=== PATIENT | male | born 1985 | race Caucasian/White ===

== ENCOUNTER 2016-10-16 18:08 | Emergency (ER) | payer SELFPAY ==
[~2016-10-16] VITALS: Ht 175.3 cm; Wt 63.5 kg
[2016-10-16 20:35] VITALS: BP 136/90
== END 2016-10-16 20:35 | disposition home or self-care (01) ==
LOC: ED 18:08
DX: S60.351A Superficial foreign body of right thumb, initial encounter (principal); X58.XXXA Exposure to other specified factors, initial encounter; Y93.89 Activity, other specified; Y99.8 Other external cause status; Y92.89 Other specified places as the place of occurrence of the external cause

== ENCOUNTER 2016-10-29 06:40 | Emergency (ER) | payer MEDICAID ==
[2016-10-29 07:36] LABS: BASOPHIL % 0.4 % (0-2); PLATELET COUNT 208 x10^3mcL (130-400); RED CELL DISTRIBUTION WIDTH 13.9 % (11.5-14.5)
[2016-10-29 07:53] LABS: CALCIUM 8.1 mg/dL (8.5-10.1); CARBON DIOXIDE 24.3 mmol/L (21-32); CHLORIDE SERUM 103 mmol/L (98-107); CREATININE SERUM 0.8 mg/dL (0.7-1.3); GFR1 > 60 mL/min; GLUCOSE SERUM 93 mg/dL (74-106); POTASSIUM SERUM 3.6 mmol/L (3.5-5.1); SODIUM SERUM 139 mmol/L (136-145)
[2016-10-29 07:58] LABS: ALBUMIN 3.9 g/dL (3.4-5.0); ALKALINE PHOSPHATASE 45 U/L (46-116); ALT/SGPT 31 U/L (16-63); AMYLASE 76 U/L (25-115); AST/SGOT 26 U/L (15-37); LIPASE 196 IU/L (73-393); TOTAL PROTEIN, SERUM 7.4 g/dL (6.4-8.2)
[2016-10-29 10:40] VITALS: BP 136/86
== END 2016-10-29 10:40 | disposition home or self-care (01) ==
LOC: ED 06:40
PROVIDERS: Specialist
DX: R10.13 Epigastric pain (principal); R10.11 Right upper quadrant pain; F17.210 Nicotine dependence, cigarettes, uncomplicated
CPT/HCPCS: 83880; J1885; J2405; J3010; J7030; Q0092

== ENCOUNTER 2016-11-30 20:18 | Emergency (ER) | payer MEDICAID | END 2016-11-30 23:21 | disposition left against medical advice (07) | LOC: ED 20:18 | DX: Z53.21 Procedure and treatment not carried out due to patient leaving prior to being seen by health care provider (principal) ==

== ENCOUNTER 2017-09-02 18:15 | Emergency (ER) | payer OTHER ==
[~2017-09-02] VITALS: Ht 180.3 cm; Wt 61.2 kg
[2017-09-02 18:32] VITALS: Ht 180.3 cm; Wt 61.2 kg
[2017-09-02 22:10] VITALS: BP 129/94
== END 2017-09-02 22:10 | disposition home or self-care (01) ==
LOC: ED 18:15
DX: G89.29 Other chronic pain (principal); R51 Headache

== ENCOUNTER 2017-09-18 14:36 | Emergency (ER) | payer OTHER ==
[~2017-09-18] VITALS: Ht 180.3 cm; Wt 62.8 kg
[2017-09-18 14:52] VITALS: Ht 180.3 cm; Wt 62.8 kg
[2017-09-18 15:59] VITALS: BP 109/68
== END 2017-09-18 15:59 | disposition home or self-care (01) ==
LOC: ED 14:36
DX: G89.29 Other chronic pain (principal); F11.20 Opioid dependence, uncomplicated; R51 Headache
CPT/HCPCS: J1885

== ENCOUNTER 2017-10-03 14:08 | Emergency (ER) | payer OTHER ==
[~2017-10-03] VITALS: Ht 180.3 cm; Wt 62.6 kg
[2017-10-03 14:15] VITALS: Ht 180.3 cm; Wt 62.6 kg
[2017-10-03 15:58] VITALS: BP 134/71
== END 2017-10-03 16:01 | disposition home or self-care (01) ==
LOC: ED 14:08
DX: G89.29 Other chronic pain (principal); M25.562 Pain in left knee; R51 Headache
CPT/HCPCS: J1885

== ENCOUNTER 2018-01-01 19:52 | Emergency (ER) | payer OTHER ==
[~2018-01-01] VITALS: Ht 180.3 cm; Wt 65.8 kg
[2018-01-01 20:11] VITALS: Ht 180.3 cm; Wt 65.8 kg
[2018-01-01 21:08] VITALS: BP 130/58
== END 2018-01-01 21:08 | disposition home or self-care (01) ==
LOC: ED 19:52
DX: F43.20 Adjustment disorder, unspecified (principal); G44.209 Tension-type headache, unspecified, not intractable

== ENCOUNTER 2018-01-02 13:03 | Emergency (ER) | payer OTHER ==
[~2018-01-02] VITALS: Ht 185.4 cm; Wt 74.4 kg
[2018-01-02 13:11] VITALS: Ht 185.4 cm; Wt 74.4 kg
[2018-01-02 13:54] LABS: microscopic required? NO
[2018-01-02 13:58] LABS: BASOPHIL % 0.3 % (0-2); PLATELET COUNT 259 x10^3mcL (130-400); RED CELL DISTRIBUTION WIDTH 14.3 % (11.5-14.5)
[2018-01-02 14:03] LABS: CALCIUM 7.9 mg/dL (8.5-10.1); CARBON DIOXIDE 26.2 mmol/L (21-32); CHLORIDE SERUM 108 mmol/L (98-107); GFR1 > 60 mL/min; GLUCOSE SERUM 106 mg/dL (74-106); POTASSIUM SERUM 3.9 mmol/L (3.5-5.1); SODIUM SERUM 140 mmol/L (136-145)
[2018-01-02 14:07] LABS: ALBUMIN 3.1 g/dL (3.4-5.0); ALKALINE PHOSPHATASE 43 U/L (46-116); ALT/SGPT 27 U/L (16-63); AST/SGOT 14 U/L (15-37); BILIRUBIN TOTAL 0.1 mg/dL (0.20-1.00); TOTAL PROTEIN, SERUM 6.4 g/dL (6.4-8.2)
[2018-01-02 14:07] LABS: UA SPECIFIC GRAVITY 1.025 (1.005-1.035); urine erythrocyte NEGATIVE (NEGATIVE)
[2018-01-02 14:10] LABS: AMPHETAMINE QUAL UR NONE DETECTED (See below)
[2018-01-02 15:24] VITALS: BP 100/78
== END 2018-01-02 15:24 | disposition left against medical advice (07) ==
LOC: ED 13:03
PROVIDERS: Emergency Medicine
DX: R45.851 Suicidal ideations (principal); F32.89 Other specified depressive episodes; F17.210 Nicotine dependence, cigarettes, uncomplicated; F11.20 Opioid dependence, uncomplicated; Z86.69 Personal history of other diseases of the nervous system and sense organs
CPT/HCPCS: 36415; 99406; G0480

== ENCOUNTER 2018-01-08 14:49 | Emergency (ER) | payer OTHER ==
[~2018-01-08] VITALS: Ht 180.3 cm; Wt 68.0 kg
[2018-01-08 15:00] VITALS: Ht 180.3 cm; Wt 68.0 kg
[2018-01-08 16:00] VITALS: BP 115/89
== END 2018-01-08 16:00 | disposition home or self-care (01) ==
LOC: ED 14:49
DX: G89.29 Other chronic pain (principal); M54.5 Low back pain; F32.9 Major depressive disorder, single episode, unspecified; Z86.69 Personal history of other diseases of the nervous system and sense organs
CPT/HCPCS: J1885

== ENCOUNTER 2018-01-12 16:07 | Emergency (ER) | payer OTHER ==
[~2018-01-12] VITALS: Ht 180.3 cm; Wt 68.0 kg
[2018-01-12 17:38] VITALS: BP 133/90
== END 2018-01-12 17:38 | disposition home or self-care (01) ==
LOC: ED 16:07
DX: F41.9 Anxiety disorder, unspecified (principal); F32.9 Major depressive disorder, single episode, unspecified

== ENCOUNTER 2018-01-20 10:42 | Emergency (ER) | payer OTHER ==
[~2018-01-20] VITALS: Ht 180.3 cm; Wt 66.2 kg
[2018-01-20 10:59] VITALS: Ht 180.3 cm; Wt 66.2 kg
[2018-01-20 11:47] VITALS: BP 116/74
== END 2018-01-20 11:47 | disposition home or self-care (01) ==
LOC: ED 10:42
DX: F41.9 Anxiety disorder, unspecified (principal); F32.9 Major depressive disorder, single episode, unspecified

== ENCOUNTER 2018-01-27 17:12 | Emergency (ER) | payer OTHER ==
[~2018-01-27] VITALS: Ht 180.3 cm; Wt 66.2 kg
[2018-01-27 17:17] VITALS: Ht 180.3 cm; Wt 66.2 kg
[2018-01-27 18:55] VITALS: BP 114/68
== END 2018-01-27 18:55 | disposition home or self-care (01) ==
LOC: ED 17:12
DX: G89.29 Other chronic pain (principal); M54.9 Dorsalgia, unspecified

== ENCOUNTER 2018-02-18 15:17 | Emergency (ER) | payer OTHER ==
[~2018-02-18] VITALS: Ht 180.3 cm; Wt 63.5 kg
[2018-02-18 15:23] VITALS: Ht 180.3 cm; Wt 63.5 kg
[2018-02-18 16:49] LABS: CALCIUM 8.9 mg/dL (8.5-10.1); CARBON DIOXIDE 22.7 mmol/L (21-32); CHLORIDE SERUM 107 mmol/L (98-107); CREATININE SERUM 0.9 mg/dL (0.7-1.3); GFR1 > 60 mL/min; GLUCOSE SERUM 99 mg/dL (74-106); POTASSIUM SERUM 5.1 mmol/L (3.5-5.1); SODIUM SERUM 142 mmol/L (136-145)
[2018-02-18 17:00] VITALS: BP 118/82
== END 2018-02-18 17:49 | disposition home or self-care (01) ==
LOC: ED 15:17
PROVIDERS: Emergency Medicine
DX: R51 Headache (principal); R10.9 Unspecified abdominal pain; R19.7 Diarrhea, unspecified; R42 Dizziness and giddiness; R11.0 Nausea; G89.29 Other chronic pain; M54.9 Dorsalgia, unspecified
CPT/HCPCS: 99406; J1200; J1885; J2765

== ENCOUNTER 2018-02-22 19:03 | Emergency (ER) | payer OTHER ==
[~2018-02-22] VITALS: Ht 180.3 cm; Wt 64.2 kg
[2018-02-22 21:26] LABS: BASOPHIL % 0.3 % (0-2); PLATELET COUNT 300 x10^3mcL (130-400); RED CELL DISTRIBUTION WIDTH 13.7 % (11.5-14.5)
[2018-02-22 21:51] LABS: CALCIUM 8.5 mg/dL (8.5-10.1); CARBON DIOXIDE 27.1 mmol/L (21-32); CHLORIDE SERUM 104 mmol/L (98-107); CREATININE SERUM 0.7 mg/dL (0.7-1.3); GFR1 > 60 mL/min; GLUCOSE SERUM 98 mg/dL (74-106); POTASSIUM SERUM 3.7 mmol/L (3.5-5.1); SODIUM SERUM 137 mmol/L (136-145)
[2018-02-22 21:55] LABS: ALBUMIN 3.5 g/dL (3.4-5.0); ALKALINE PHOSPHATASE 50 U/L (46-116); ALT/SGPT 42 U/L (16-63); AST/SGOT 17 U/L (15-37); BILIRUBIN TOTAL 0.3 mg/dL (0.20-1.00); LIPASE 257 IU/L (73-393); TOTAL PROTEIN, SERUM 7.2 g/dL (6.4-8.2)
[2018-02-22 22:12] VITALS: BP 102/74
[2018-02-22 22:50] LABS: microscopic required? NO
[2018-02-22 23:00] LABS: UA SPECIFIC GRAVITY >=1.030 (1.005-1.035); urine erythrocyte NEGATIVE (NEGATIVE)
== END 2018-02-22 22:49 | disposition home or self-care (01) ==
LOC: ED 19:03
PROVIDERS: Emergency Medicine
DX: R10.11 Right upper quadrant pain (principal); R42 Dizziness and giddiness; R56.9 Unspecified convulsions; G89.29 Other chronic pain; M54.9 Dorsalgia, unspecified; M79.606 Pain in leg, unspecified; F17.210 Nicotine dependence, cigarettes, uncomplicated
CPT/HCPCS: 36415; J1885

== ENCOUNTER 2018-04-22 12:59 | Emergency (ER) | payer OTHER ==
[~2018-04-22] VITALS: Ht 180.3 cm; Wt 63.5 kg
[2018-04-22 13:06] VITALS: BP 108/62; Ht 180.3 cm; Wt 63.5 kg
[2018-04-22 15:26] LABS: BASOPHIL % 0.7 % (0-2); PLATELET COUNT 333 x10^3mcL (130-400)
[2018-04-22 15:29] LABS: RED CELL DISTRIBUTION WIDTH 17.3 % (11.5-14.5)
[2018-04-22 15:34] LABS: CALCIUM 8.6 mg/dL (8.5-10.1); CARBON DIOXIDE 25.8 mmol/L (21-32); CHLORIDE SERUM 104 mmol/L (98-107); CREATININE SERUM 0.8 mg/dL (0.7-1.3); GFR1 > 60 mL/min; GLUCOSE SERUM 103 mg/dL (74-106); POTASSIUM SERUM 4.3 mmol/L (3.5-5.1); SODIUM SERUM 138 mmol/L (136-145)
[2018-04-22 15:39] LABS: ALBUMIN 3.6 g/dL (3.4-5.0); ALKALINE PHOSPHATASE 45 U/L (46-116); ALT/SGPT 32 U/L (16-63); AST/SGOT 16 U/L (15-37); BILIRUBIN TOTAL 0.2 mg/dL (0.20-1.00)
== END 2018-04-22 16:25 | disposition home or self-care (01) ==
LOC: ED 12:59
PROVIDERS: Emergency Medicine
DX: R42 Dizziness and giddiness (principal); F17.210 Nicotine dependence, cigarettes, uncomplicated; F41.9 Anxiety disorder, unspecified; F32.9 Major depressive disorder, single episode, unspecified; G89.29 Other chronic pain
CPT/HCPCS: J2405; J7030; J8597

== ENCOUNTER 2018-06-24 21:55 | Emergency (ER) | payer OTHER ==
[~2018-06-24] VITALS: Ht 180.3 cm; Wt 72.1 kg
[2018-06-24 22:18] VITALS: Ht 180.3 cm; Wt 72.1 kg
[2018-06-24 22:21] VITALS: BP 118/79
== END 2018-06-24 22:21 | disposition other institution (70) ==
LOC: ED 21:55
DX: Z02.89 Encounter for other administrative examinations (principal)

== ENCOUNTER 2018-09-08 22:56 | Emergency (ER) | payer OTHER ==
[~2018-09-08] VITALS: Ht 180.3 cm; Wt 69.9 kg
[2018-09-08 23:10] VITALS: BP 145/89; Ht 180.3 cm; Wt 69.9 kg
== END 2018-09-09 01:13 | disposition left against medical advice (07) ==
LOC: ED 22:56
DX: Z53.21 Procedure and treatment not carried out due to patient leaving prior to being seen by health care provider (principal)

== ENCOUNTER 2018-11-02 02:40 | Emergency (ER) | payer OTHER ==
[~2018-11-02] VITALS: Ht 180.3 cm; Wt 67.6 kg
[2018-11-02 02:59] VITALS: Ht 180.3 cm; Wt 67.6 kg
[2018-11-02 07:39] VITALS: BP 113/61
== END 2018-11-02 07:39 | disposition home or self-care (01) ==
LOC: ED 02:40
DX: S01.81XA Laceration without foreign body of other part of head, initial encounter (principal); F41.9 Anxiety disorder, unspecified; F32.9 Major depressive disorder, single episode, unspecified; G89.29 Other chronic pain; M54.9 Dorsalgia, unspecified; Z98.890 Other specified postprocedural states; X58.XXXA Exposure to other specified factors, initial encounter; Y93.89 Activity, other specified; Y92.89 Other specified places as the place of occurrence of the external cause; Y99.8 Other external cause status
CPT/HCPCS: J2001

== ENCOUNTER 2018-11-15 16:49 | Emergency (ER) | payer OTHER | END 2018-11-15 21:05 | disposition other institution (70) | LOC: ED 16:49 | DX: Z02.89 Encounter for other administrative examinations (principal) ==

== ENCOUNTER 2018-11-15 16:49 | Emergency (ER) | payer OTHER ==
[~2018-11-15] VITALS: Ht 180.3 cm; Wt 70.3 kg
[2018-11-15 16:55] VITALS: Ht 180.3 cm; Wt 70.3 kg
[2018-11-15 17:46] LABS: BASOPHIL % 0.4 % (0-2); PLATELET COUNT 296 x10^3mcL (130-400)
[2018-11-15 17:48] LABS: RED CELL DISTRIBUTION WIDTH 14.7 % (11.5-14.5)
[2018-11-15 17:58] LABS: CALCIUM 8.7 mg/dL (8.5-10.1); CARBON DIOXIDE 25.1 mmol/L (21-32); CHLORIDE SERUM 109 mmol/L (98-107); CREATININE SERUM 0.9 mg/dL (0.7-1.3); GFR1 > 60 mL/min; GLUCOSE SERUM 81 mg/dL (74-106); SODIUM SERUM 145 mmol/L (136-145)
[2018-11-15 18:17] LABS: ALBUMIN 3.4 g/dL (3.4-5.0); ALKALINE PHOSPHATASE 52 U/L (46-116); ALT/SGPT 18 U/L (16-63); AST/SGOT 10 U/L (15-37); BILIRUBIN TOTAL 0.24 mg/dL (0.20-1.00); FREE T4 0.87 ng/dL (0.76-1.46); TOTAL PROTEIN, SERUM 7.3 g/dL (6.4-8.2)
[2018-11-15 18:37] LABS: AMPHETAMINE QUAL UR NONE DETECTED (See below)
[2018-11-15 21:05] VITALS: BP 135/75
== END 2018-11-15 21:05 | disposition other institution (70) ==
LOC: ED 16:49
PROVIDERS: Emergency Medicine
DX: R56.9 Unspecified convulsions (principal); F41.9 Anxiety disorder, unspecified; G89.29 Other chronic pain; M54.9 Dorsalgia, unspecified; Z98.890 Other specified postprocedural states
CPT/HCPCS: 84439; G0480; J1953; J2060

== ENCOUNTER 2019-01-24 23:19 | Emergency (ER) | payer OTHER ==
[~2019-01-24] VITALS: Ht 170.2 cm; Wt 62.1 kg
[2019-01-24 23:33] VITALS: Ht 170.2 cm; Wt 62.1 kg
[2019-01-25 00:04] VITALS: BP 102/65
== END 2019-01-25 00:04 | disposition other institution (70) ==
LOC: ED 23:19
DX: Z02.89 Encounter for other administrative examinations (principal)